=== PATIENT | male | born 1980 | race African-American/Black ===

== ENCOUNTER 2020-05-15 20:27 | Emergency (ER) | payer OTHER ==
[~2020-05-15] VITALS: Ht 177.8 cm; Wt 121.0 kg
[2020-05-15] MEDS ORDERED: HYDROcodon/IBUPROFEN 7.5/200MG 1 TAB TABLET PO ONE (20:45)
--- NOTE | 2020-05-15 20:48 | PHYS DOC ---
General Adult HPI: HPI: ". There was this incident.. and two other guys.. but the locker set fell over and hit my Rt. foot.. it been a couple hours.. but they still hurt..." Patient is a 40 year old male patient from the [facility], [place], operated by [facility] who presents with above history and complaints of crush injury to right toe. Patient's toe got crushed 1 a full size locker fell over on top of it. Patient's right first and second toe are painful to touch, swollen, ecchymotic, and contused. No upper foot tenderness. No other injury. Patient normally healthy. Review of Systems: Review of Systems: Constitutional: Denies fever or chills Eyes: Denies change in visual acuity HENT: Denies nasal congestion or sore throat Respiratory: Denies cough or shortness of breath Cardiovascular: Denies chest pain or edema GI: Denies abdominal pain, nausea, vomiting, bloody stools or diarrhea : Denies dysuria Musculoskeletal: Complains of crush injury to right foot Integument: Denies rash Neurologic: Denies headache, focal weakness or sensory changes Endocrine: Denies polyuria or polydipsia Lymphatic: Denies swollen glands Psychiatric: Denies depression or anxiety Family History: Family History: Noncontributory to presentation Current Medications: Current Meds: See nursing for home meds Current Medications Medications (Trade) Dose Ordered Sig/Davidson Start Time Stop Time Status Last Admin Dose Admin Hydrocodone Bitartrate/ Ibuprofen (Vicoprofen 7.5-200) 2 tab 1X ONCE 05/15/20 20:45 05/15/20 20:46 UNV Allergies: Allergies: No known drug allergies Physical Exam: PE: Constitutional: Well developed, well nourished, no acute distress, non-toxic appearance. [] HENT: Normocephalic, atraumatic, bilateral external ears normal, oropharynx moist, no oral exudates, nose normal. []Scar Lt upper lip. Scar under Lt eye. Eyes: PERRLA, EOMI, conjunctiva normal, no discharge. [] Neck: Normal range of motion, no tenderness, supple, no stridor. [] Cardiovascular:Heart rate regular rhythm, no murmur [] Lungs & Thorax: Bilateral breath sounds equal at apex on auscultation [] Abdomen: Bowel sounds normal, soft, no tenderness, no masses, no pulsatile masses. [] Skin: Warm, dry, no erythema, no rash. Tattoos Back: No tenderness, no CVA tenderness. [] Extremities: No tenderness, no cyanosis, no clubbing, ROM intact, no edema. [] Except findings and right foot as per HPI Neurologic: Alert and oriented X 3, normal motor function, normal sensory function, no focal deficits noted. [] Psychologic: Affect normal, judgement normal, mood normal. [] EKG: EKG: [] Radiology/Procedures: Radiology/Procedures: [][address] [address] IMAGING REPORT Signed PATIENT: GEMMA CARTER ACCOUNT: [id number] : 1980 LOCATION: ER AGE: 40 SEX: M EXAM STATUS: REG ER ORD. PHYSICIAN: ANKIT WALKER MD REASON: crush injury, PROCEDURE: FOOT RIGHT 3V 3 view study of right foot. Clinical indications: Crush injury. Pain. FINDINGS: There is a transverse fracture of the midshaft of the first proximal phalanx. No significant displacement is seen. There is mild plantar angulation of the apex of the fracture. No dislocation or lytic process is evident. IMPRESSION: Acute posttraumatic fracture of first proximal phalanx. Electronically signed by: Chanell Rollins MD (05/15/2020 9:20 PM) [id number] DICTATED AND SIGNED BY: CHANELL ROLLINS MD DATE: 05/15/202117 CC: ANKIT WALKER MD; PCP,NO ~MTH0 0 Heart Score: Risk Factors: Risk Factors: DM, Current or recent (<one month) smoker, HTN, HLP, family history of CAD, obesity. Risk Scores: Score 0 - 3: 2.5% MACE over next 6 weeks - Discharge Home Score 4 - 6: 20.3% MACE over next 6 weeks - Admit for Clinical Observation Score 7 - 10: 72.7% MACE over next 6 weeks - Early Invasive Strategies Course & Med Decision Making: Course & Med Decision Making Pertinent Labs and Imaging studies reviewed. (See chart for details) Ice, elevation, rest, Tylenol and ibuprofen for pain. Follow-up primary care. Wear stiff shoe/cast shoe.. Crutches. Follow up with orthro. [phone]. Discharge vascular intact after application oliver splint and cast shoe. Impression: 1. Crush injury to right foot primarily first and second toe. 2. Fx lst Toe [] Dragon Disclaimer: Dragon Disclaimer: This electronic medical record was generated, in whole or in part, using a voice recognition dictation system. Departure Departure: Referrals: PCP,NO (PCP) Nicko Disclaimer This chart was dictated in whole or in part using Voice Recognition software in a busy, high-work load, and often noisy Emergency Department environment. It may contain unintended and wholly unrecognized errors or omissions. Dragon Disclaimer This chart was dictated in whole or in part using Voice Recognition software in a busy, high-work load, and often noisy Emergency Department environment. It may contain unintended and wholly unrecognized errors or omissions. ANKIT WALKER MD May 15, 2020 20:48
--- NOTE | 2020-05-15 21:22 | RAD ---
3 view study of right foot. Clinical indications: Crush injury. Pain. FINDINGS: There is a transverse fracture of the midshaft of the first proximal phalanx. No significan t displacement is seen. There is mild plantar angulation of the apex of the fracture. No dislocation or lytic process is evident. IMPRESSION: Acute posttraumatic fracture of first proximal phalanx. Electronically signed by: Ross Rollins MD (05/15/2020 9:20 PM) [id number]
[2020-05-15 21:35] VITALS: BP 133/84
== END 2020-05-15 21:35 | disposition home or self-care (01) ==
LOC: ER 20:27
DX: S92.411A Displaced fracture of proximal phalanx of right great toe, initial encounter for closed fracture (principal); S97.121A Crushing injury of right lesser toe(s), initial encounter; W20.8XXA Other cause of strike by thrown, projected or falling object, initial encounter; Y93.89 Activity, other specified; Y92.89 Other specified places as the place of occurrence of the external cause; Y99.8 Other external cause status
CPT/HCPCS: 73630; 99283

== ENCOUNTER → 2020-07-18 | Outpatient (CLI) | payer OTHER ==
--- NOTE | 2020-07-18 17:47 | RAD ---
EXAM: 2 views right great toe DATE: 07/18/2020 11:33 AM INDICATION: Reason: FRACTURE OF GREAT TOE / Spl. Instructions: / History: COMPARISON: No Prior FINDINGS/ IMPRESSION: 1. Progressively healing fracture of the proximal phalanx right great toe is in stable alignment wit h associated callus formation. 2. Mild forefoot soft tissue swelling. Electronically signed by: John Milian MD (07/18/2020 5:44 PM) [id number]
== END ==
LOC: DXRAD 11:16
PROVIDERS: ATTEND Physician Assistant
DX: S92.401A Displaced unspecified fracture of right great toe, initial encounter for closed fracture (principal); M79.89 Other specified soft tissue disorders; X58.XXXA Exposure to other specified factors, initial encounter; Y93.89 Activity, other specified; Y92.89 Other specified places as the place of occurrence of the external cause; Y99.8 Other external cause status
CPT/HCPCS: 73660